=== PATIENT | female | born 1970 | race Hispanic/Latino ===

== ENCOUNTER 2017-09-24 10:08 | Outpatient (CLI) | payer OTHER | END 2017-09-24 10:09 | disposition home or self-care (01) | LOC: LABHHL 10:08 | PROVIDERS: ATTEND Specialist | DX: N60.01 Solitary cyst of right breast (principal) | CPT/HCPCS: 88112 ==

== ENCOUNTER 2020-10-08 08:02 | Outpatient (CLI) | payer OTHER ==
--- NOTE | 2020-10-08 08:55 | Mammography Report ---
DIGITAL SCREENING MAMMOGRAM WITH CAD, 10/08/2020 CLINICAL INFORMATION / INDICATION: Routine screening mammography. SCREENING MAMMO TECHNIQUE: Digital bilateral 2D mammography was obtained in the craniocaudal and mediolateral obliqu e projections. This examination was interpreted with the benefit of Computer-Aided Detection analysis . COMPARISON: 09/15/2017 through 10/03/2019. FINDINGS: Breast Density: The breasts are heterogeneously dense, which may obscure small masses. No dominant mass, suspicious calcifications, or architectural distortion in either breast. Benign-appearing changing nodularity bilaterally and benign calcifications bilaterally are again iden tified. IMPRESSION: No mammographic evidence of malignancy. Follow up recommendation: Routine yearly BI-RADS Category 2: Benign. A "normal" or negative report should not discourage follow up or biopsy of a clinically significant f inding. A written summary of these findings will be mailed to the patient. The patient will be entered into a mammography reporting system which will generate a reminder letter for the patient's next appointmen t at the appropriate interval. [employer] recommends yearly mammograms starting at age 40 and continuing as l skyla as a woman is in good health. Breast MRI is recommended for women with an approximate 20-25% or greater lifetime risk of breast cancer, including women with a strong family history of breast or ova pj cancer or who have been treated for Hodgkin's disease. Signer Name: Anival Lewis MD Signed: 10/08/2020 8:51 AM Workstation Name: [id number]
== END 2020-10-08 08:03 | disposition home or self-care (01) ==
LOC: SPVWC 08:02
PROVIDERS: ATTEND Surgery
DX: Z12.31 Encounter for screening mammogram for malignant neoplasm of breast (principal); N64.89 Other specified disorders of breast
CPT/HCPCS: 77067